=== PATIENT | male | born 1960 | race Caucasian/White ===

== ENCOUNTER 2020-10-22 13:17 | Emergency (ER) | payer MEDICAID ==
[~2020-10-22] VITALS: Ht 177.8 cm; Wt 85.0 kg
[2020-10-22] MEDS ORDERED: AMPICILLIN/SULBACTAM 3 GM in SODIUM CHLORIDE 0.9% 100 ML IV ONE (14:30)
[2020-10-22] MEDS ORDERED: HYDROcodone/APAP 5/325 TABLET PO ONE (14:30)
[2020-10-22 14:59] LABS: BASOPHILS % (AUTO) 1 % (0-1); EOSINOPHILS % (AUTO) 1 % (1-7); LYMPHOCYTES % (AUTO) 13 % (22-44); MD NO; MEAN CORPUSCULAR HEMOGLOBIN 28.7 pg (27.5-34.5); MEAN CORPUSCULAR HGB CONC 33.7 g/dL (33.2-36.2); MEAN PLATELET VOLUME 7.5 fL (7.4-10.4); MONOCYTES % (AUTO) 9 % (2-9); NEUTROPHILS % (AUTO) 77 % (42-75); PLATELET COUNT 317 x10^3/uL (130-400); RED CELL DISTRIBUTION WIDTH 14.5 % (9.4-14.8)
--- NOTE | 2020-10-22 15:00 | NUR ---
This pt came from [facility] via EMS with personal wheelchair. Pt moving all extremities in bed. Pt connected to all monitors, sleeping in bed, NADN. Pt has large left eye and nose wound that he reports is "basal CA."
[2020-10-22 15:05] LABS: ALANINE AMINOTRANSFERASE 22 U/L (12-78); ALBUMIN 3.5 g/dL (3.4-5.0); ANION GAP 4 mmol/L (5-15); CALCIUM 8.6 mg/dL (8.5-10.1); CHLORIDE 103 mmol/L (98-107); CREATININE 0.75 mg/dL (0.7-1.3)
[2020-10-22 15:07] LABS: ALKALINE PHOSPHATASE 83 U/L (45-117); BILIRUBIN,TOTAL 1.1 mg/dL (0.2-1.0); TOTAL PROTEIN 7.4 g/dL (6.4-8.2)
[2020-10-22] MEDS ORDERED: LIDOCAINE-MPF 1%, 5ML ONE (15:13)
--- NOTE | 2020-10-22 15:36 | NUR ---
TASK RN: PT RESTING IN [facility] NOTED. PA AT BEDSIDE FOR I&D. ABX INITIATED. BC X2 DRAWN PRIOR TO ADMIN
[2020-10-22] MEDS ORDERED: HYDROcodone/APAP 5/325 TABLET ONE (15:54)
[2020-10-22] MEDS ORDERED: NEOSPORIN OINT. PKT 1 PACKET ONE (15:54)
--- NOTE | 2020-10-22 16:35 | NUR ---
US at bedside.
[2020-10-22 17:54] VITALS: BP 134/67
== END 2020-10-22 17:57 | disposition home or self-care (01) ==
LOC: ED 16:52
DX: S39.012A Strain of muscle, fascia and tendon of lower back, initial encounter (principal); L03.116 Cellulitis of left lower limb; L02.413 Cutaneous abscess of right upper limb; R94.31 Abnormal electrocardiogram [ECG] [EKG]; Z85.3 Personal history of malignant neoplasm of breast; X58.XXXA Exposure to other specified factors, initial encounter; Y93.89 Activity, other specified; Y92.89 Other specified places as the place of occurrence of the external cause; Y99.8 Other external cause status
CPT/HCPCS: 10060; 36415; 80053; 80320; 83605; 85025; 87040; 93005; 93971; 96365; 99285; J0295; G0480